=== PATIENT | male | born 1935 | race Caucasian/White ===

== ENCOUNTER → 2017-05-15 | Outpatient (CLI) | payer MEDICARE ==
[~2017-05-15] MED LIST: AMLODIPINE10 MG PO; ATORVASTATIN CA10 MG PO; BISOPROLOL FUMA1 TA3 PO; FINASTERIDE5 MG PO; KRILL OIL 3001 EACH PO; LEVOTHYROXINE0.05 MG NG; LOSARTAN POTAS100 MG PO; PANTOPRAZOLE SO40 MG PO; XARELTO15 MG PO
--- NOTE | 2017-05-15 14:05 | RADIOLOGY REPORT PS360 ---
US THYROID HISTORY: THYROMEGALY ORDERING PHYSICIAN: Clyde Li MD PATIENT AGE: 81 years COMPARISON: None FINDINGS: Right lobe: 3.4 x 1.1 x 2 cm. There is some heterogeneous echogenicity. A 5 mm cyst is present in the mid aspect of the right lobe. Left lobe: 3.4 x 1.1 x 1.5 cm. Mild heterogeneous echogenicity. Isthmus: Unremarkable IMPRESSION: Mild heterogeneous echogenicity the thyroid gland. No enlargement or solid masses. There is a 5 mm cyst on the right
--- NOTE | 2017-05-16 17:17 | RADIOLOGY REPORT PS360 ---
PROCEDURE: 2-D M-mode and color Doppler study INDICATIONS FOR THE TEST: Chest pain COPD Heart Murmur Tobacco Smoking Palpitations Fatigue Syncope Edema Hypertension+Diabetes Mellitus Rheumatic Fever SOB NICHOLAS Obesity Hyperlipidemia Family History HD Additional History AFIB PATIENT INFORMATION HEIGHT:70 WEIGHT:196 GENDER: Male B/P:169/87 2-D/M-MODE INTERPRETATION: 2-D MEASUREMENTS OBSERVED VALUES IN CMS Right Ventricular Dimension (RVDd) 3.0 Interventricular Septum (Thickness)(IVsd) 1.4 Left Ventricular Internal Dimensions(LVIDd) 4.6 Left Ventricular Posterior Wall (Thickness)(LVPWd) 1.3 Aortic Root 3.7 Aortic Cusp Separation 2.0 Left Atrial Dimensions (LAD) 6.1 2D 1. Left atrium is moderately enlarged, left ventricle is normal size, there is mild concentric left ventricular hypertrophy, visually estimated ejection fraction 55% with no obvious regional wall motion abnormality. 2. The right atrium is moderately enlarged, right ventricle is mildly dilated with normal contractility. 3. The aortic valve is thickened and calcified, leaflet continue to display good mobility. 4. The mitral and tricuspid valve leaflets are minimally thickened. 5. The pulmonic valve is poorly visualized. 6. No significant pericardial effusion noted DOPPLER INTERROGATION: Doppler interrogation of the aortic, mitral and tricuspid valvular presence of mild aortic, mild mitral and tricuspid regurgitation, tricuspid regurgitant jet velocity is insufficient for calculation of the right ventricular systolic pressure. CONCLUSION: 1. Moderate biatrial enlargement, normal left ventricular size, mild concentric left ventricular hypertrophy, visually estimated ejection fraction 55% with no obvious regional wall motion abnormality. 2. Mildly enlarged right ventricle with normal contractility. 3. Mild aortic, mild mitral and tricuspid regurgitation. 4. No significant pericardial effusion noted.
== END ==
LOC: RT 05-08 08:00
DX: I48.91 Unspecified atrial fibrillation (principal); I11.9 Hypertensive heart disease without heart failure; I25.10 Atherosclerotic heart disease of native coronary artery without angina pectoris; Z01.818 Encounter for other preprocedural examination